=== PATIENT | female | born 1985 | race African-American/Black ===

== ENCOUNTER 2018-03-30 16:30 | Emergency (ER) | payer BC ==
[~2018-03-30] VITALS: Ht 165.1 cm; Wt 77.0 kg
[2018-03-30] MEDS ORDERED: SODIUM CHLORIDE 0.9% 1,000 ML IV ONE (19:09)
[2018-03-30] MEDS ORDERED: FAMOTIDINE 20MG/2ML VIAL IV ONE (19:15)
[2018-03-30] MEDS ORDERED: MAGNESIUM/ALUMINUM HYDROXIDE/SIMETHICONE 30ML UDC PO ONE (19:15)
[2018-03-30] MEDS ORDERED: ONDANSETRON HCL 4MG/2ML INJ IV ONE (19:15)
[2018-03-30] MEDS ORDERED: DICYCLOMINE 10 MG/5 ML ORAL SYR PO ONE (19:15)
[2018-03-30 19:48] LABS: HEMATOCRIT. 41.3 % (36.0-48.0); HEMOGLOBIN. 13.4 g/dL (12.0-16.0); MEAN CORPUSCULAR HEMOGLOBIN 26.6 pg (28.0-32.0); MEAN CORPUSCULAR VOLUME 81.7 fL (81.0-99.0); MEAN PLATELET VOLUME 9.3 fl (7.4-10.4); PLATELET 278 x1000/uL (130-400); RED BLOOD CELL COUNT 5.05 mill/uL (4.2-5.4); RED CELL DISTRIBUTION WIDTH 13.5 % (11.6-14.6)
[2018-03-30 19:54] LABS: CHLORIDE 107 mEq/L (98-107)
[2018-03-30 20:20] LABS: B-HCG QUANTITATIVE 120852 mIU/mL (<3)
[2018-03-30 20:27] LABS: PLATELET ESTIMATE NORMAL
[2018-03-30 22:37] LABS: CLARITY URINE CLOUDY (CLEAR); COLOR URINE DARK YELLOW (YELLOW); KETONES URINE 3+ (NEGATIVE); LEUKOCYTE ESTERASE URINE NEGATIVE (NEGATIVE); NITRITE URINE NEGATIVE (NEGATIVE); OCCULT BLOOD URINE 2+ (NEGATIVE); PROTEIN URINE 1+ (NEGATIVE); SPECIFIC GRAVITY URINE 1.039 (1.005-1.030); UROBILINOGEN URINE 0.2 E.U./dL (0.2-1.0)
[2018-03-30 22:45] LABS: *AMPHETAMINES SCREEN URINE NEGATIVE (NEGATIVE)
[2018-03-30 22:46] LABS: *BARBITURATES SCREEN URINE NEGATIVE (NEGATIVE); *BENZODIAZEPINES SCREEN URINE NEGATIVE (NEGATIVE); *COCAINE SCREEN URINE NEGATIVE (NEGATIVE); METHADONE URINE SCREEN NEGATIVE (NEGATIVE); OPIATES URINE SCREEN NEGATIVE (NEGATIVE); PHENCYCLIDINE URINE SCREEN NEGATIVE (NEGATIVE)
[2018-03-30 23:03] LABS: CANNABINOID URINE SCREEN PRESUMTIVE POSITIVE (NEGATIVE)
[2018-03-30] MEDS ORDERED: PANTOPRAZOLE SODIUM 40 MG/VIAL IV ONE (23:30)
[2018-03-30 23:40] VITALS: BP 121/69
== END 2018-03-31 00:42 | disposition home or self-care (01) ==
LOC: ER 16:39
DX: O26.891 Other specified pregnancy related conditions, first trimester (principal); O21.0 Mild hyperemesis gravidarum; R10.9 Unspecified abdominal pain; Z3A.01 Less than 8 weeks gestation of pregnancy
CPT/HCPCS: 36415; 76801; 76817; 80053; 80305; 81003; 81025; 84702; 85025; 96361; 96374; 96375; 99284; C9113; J2405; J3490; J7030

== ENCOUNTER 2024-11-14 10:29 | Inpatient (IN) | payer BC ==
[~2024-11-14] VITALS: Ht 170.2 cm; Wt 71.7 kg
[2024-11-14 10:32] VITALS: O2SAT 96
[2024-11-14] MEDS: HALOPERIDOL LACTATE 5MG/ML VIAL IM ONE (11:03)
[2024-11-14 11:40] LABS: HEMATOCRIT. 39.9 % (36.0-48.0); HEMOGLOBIN. 13.0 g/dL (12.0-16.0); MEAN PLATELET VOLUME 8.7 fl (7.4-10.4); PLATELET 319 x1000/uL (130-400); RED BLOOD CELL COUNT 4.85 mill/uL (4.2-5.4); RED CELL DISTRIBUTION WIDTH 13.5 % (11.6-14.6)
[2024-11-14 11:52] LABS: HCG SCREEN NEGATIVE
[2024-11-14 11:55] LABS: CREATININE 0.9 mg/dL (0.6-1.0); UREA NITROGEN BLOOD 9 mg/dL (9-23)
[2024-11-14 11:57] LABS: ASPARTATE AMINOTRANSFERASE 19 IU/L (<34); BILIRUBIN DIRECT 0.2 mg/dL (<=3.0); BILIRUBIN TOTAL 0.7 mg/dL (0.1-1.0); PROTEIN TOTAL 7.5 g/dL (6.0-8.3)
[2024-11-14] MEDS: MORPHINE SULFATE 4 MG/ML INJ (FOR IV/IM USE) IV ONE (12:03)
[2024-11-14] MEDS: ONDANSETRON HCL 4MG/2ML INJ IV ONE (12:45)
[2024-11-14] MEDS: POTASSIUM CHLORIDE 20MEQ/PACKET PO ONE (12:46)
[2024-11-14 13:16] LABS: BAND% 4.0 % (1.0-6.0); LYMPHOCYTES % MANUAL 6.0 % (20.0-60.0); NEUTROPHILS % MANUAL 90.0 % (45.0-75.0)
[2024-11-14 13:17] LABS: PLATELET ESTIMATE NORMAL
[2024-11-14] MEDS ORDERED: GUAIFENESIN 200MG/10ML SUGAR FREE UDC PO PRN (14:30)
[2024-11-14] MEDS ORDERED: DOCUSATE SODIUM 100MG CAPSULE PO PRN (14:30)
[2024-11-14] MEDS ORDERED: CLONIDINE 0.1MG TABLET PO PRN (14:30)
[2024-11-14] MEDS: LACTATED RINGERS 1,000 ML IV SCH (15:37)
[2024-11-14] MEDS: ACETAMINOPHEN 325MG TABLET PO PRN ×2 (15:50→18:17)
[2024-11-14 16:22] LABS: *AMPHETAMINES SCREEN URINE NEGATIVE (NEGATIVE); *BARBITURATES SCREEN URINE NEGATIVE (NEGATIVE); *BENZODIAZEPINES SCREEN URINE NEGATIVE (NEGATIVE); *COCAINE SCREEN URINE NEGATIVE (NEGATIVE); CANNABINOID URINE SCREEN PRESUMPTIVE POSITIVE (NEGATIVE); ECSTASY MDMA SCREEN URINE NEGATIVE (NEGATIVE); METHADONE URINE SCREEN NEGATIVE (NEGATIVE); OPIATES URINE SCREEN NEGATIVE (NEGATIVE); PHENCYCLIDINE URINE SCREEN NEGATIVE (NEGATIVE)
[2024-11-14] MEDS: ONDANSETRON HCL 4MG/2ML INJ IV PRN (17:34)
[2024-11-14] MEDS: KCL 20MEQ/100ML PREMIX 100 ML IV NR (17:35)
[2024-11-14 17:58] VITALS: BP 121/85; PULSE 59; RESP 18; TEMP 36.2512
[2024-11-14 18:30] LABS: PHOSPHORUS 0.6 mg/dL (2.5-4.9)
[2024-11-14 18:54] LABS: TROPONIN I HIGH SENSITIVITY < 4 ng/L (3.0-34)
[2024-11-14 18:55] LABS: HEPATITIS A AB IGM NEGATIVE (Negative)
[2024-11-14 18:56] LABS: HEPATITIS B CORE AB IGM NEGATIVE (Negative)
[2024-11-14 18:57] LABS: HEPATITIS C AB NON REACTIVE (Neg) (Negative)
[2024-11-14 20:00] VITALS: BP 156/46; PULSE 57; RESP 18; TEMP 36.2; O2SAT 100
[2024-11-14] MEDS: MAGNESIUM 2 G PREMIX 50 ML IV SCH (20:54)
[2024-11-14 21:10] LABS: TROPONIN I HIGH SENSITIVITY 5 ng/L (3.0-34)
[2024-11-14] MEDS: POTASSIUM-SODIUM PHOSPHATE POWDER PACKET PO SCH (21:40)
[2024-11-14] MEDS: PRAZOSIN HCL 1MG CAPSULE PO SCH (21:43)
[2024-11-14] MEDS: POTASSIUM PHOSPHATE 30 MMOL in SODIUM CHLORIDE 0.9% 490 ML IV SCH (23:30)
[2024-11-15 08:00] VITALS: BP 140/79; PULSE 61; TEMP 36.8
[2024-11-15 08:38] LABS: HEMATOCRIT. 37.7 % (36.0-48.0); HEMOGLOBIN. 12.3 g/dL (12.0-16.0); MEAN PLATELET VOLUME 9.4 fl (7.4-10.4); PLATELET 307 x1000/uL (130-400); RED BLOOD CELL COUNT 4.54 mill/uL (4.2-5.4); RED CELL DISTRIBUTION WIDTH 12.6 % (11.6-14.6)
[2024-11-15 09:01] LABS: CREATININE 0.7 mg/dL (0.6-1.0)
[2024-11-15 09:02] LABS: LDL CHOLESTEROL 57 mg/dL (5-100); TRIGLYCERIDE 40 mg/dL (0-150); TROPONIN I HIGH SENSITIVITY 11 ng/L (3.0-34); UREA NITROGEN BLOOD 5 mg/dL (9-23)
[2024-11-15 09:04] LABS: PHOSPHORUS 3.6 mg/dL (2.5-4.9)
[2024-11-15 09:06] LABS: T4 FREE 1.20 ng/dL (0.89-1.76)
[2024-11-15] MEDS: PANTOPRAZOLE SODIUM 40 MG/VIAL IV SCH (09:08)
[2024-11-15] MEDS: SERTRALINE HCL 50MG TABLET PO SCH (09:09)
[2024-11-15 12:00] VITALS: BP 152/72; PULSE 65; TEMP 36.9
[2024-11-15 12:39] LABS: CLARITY URINE CLEAR (CLEAR); COLOR URINE YELLOW (YELLOW); GLUCOSE URINE TRACE (NEGATIVE); KETONES URINE 2+ (NEGATIVE); LEUKOCYTE ESTERASE URINE NEGATIVE (NEGATIVE); NITRITE URINE NEGATIVE (NEGATIVE); OCCULT BLOOD URINE NEGATIVE (NEGATIVE); PH URINE 8.5 (4.5-8.0); PROTEIN URINE TRACE (NEGATIVE); SPECIFIC GRAVITY URINE 1.017 (1.005-1.030); UROBILINOGEN URINE 0.2 E.U./dL (0.2-1.0)
[2024-11-15 13:00] LABS: SQUAMOUS EPITHELIAL CELL URINE 1+ /lpf (RARE/1+)
[2024-11-15 13:01] LABS: BACTERIA URINE 1+; WBC URINE 0-2 /hpf (0-2)
[2024-11-15 14:44] LABS: BAND% 4.0 % (1.0-6.0); LYMPHOCYTES % MANUAL 6.0 % (20.0-60.0); MONOCYTES % MANUAL 3.0 % (2.0-8.0); NEUTROPHILS % MANUAL 87.0 % (45.0-75.0); PLATELET ESTIMATE NORMAL
[2024-11-15 14:53] LABS: ASPARTATE AMINOTRANSFERASE 27 IU/L (<34); BILIRUBIN DIRECT 0.2 mg/dL (<=3.0); BILIRUBIN TOTAL 0.7 mg/dL (0.1-1.0)
[2024-11-15 14:54] LABS: PROTEIN TOTAL 7.2 g/dL (6.0-8.3)
[2024-11-15 16:00] VITALS: BP 136/78; PULSE 69; TEMP 37.2
[2024-11-15] MEDS: METOCLOPRAMIDE HCL 10MG/2ML VIAL IV SCH (17:56)
[2024-11-15 20:00] VITALS: BP 147/71; PULSE 55; RESP 17; TEMP 36.5; O2SAT 99
[2024-11-15] MEDS: LORAZEPAM 1MG TABLET PO PRN (20:42)
[2024-11-15] MEDS: ENOXAPARIN 40MG/0.4ML SYR SUBCUT SCH (20:43)
[2024-11-15] MEDS: PIPERACILLIN/TAZO 3.375G/50ML 50 ML IV SCH (23:27)
[2024-11-16] VITALS: BP 147/85; PULSE 55; RESP 18; TEMP 36.2; O2SAT 97
[2024-11-16 06:33] LABS: HEMATOCRIT. 38.2 % (36.0-48.0); HEMOGLOBIN. 12.5 g/dL (12.0-16.0); MEAN PLATELET VOLUME 9.2 fl (7.4-10.4); PLATELET 303 x1000/uL (130-400); RED BLOOD CELL COUNT 4.63 mill/uL (4.2-5.4); RED CELL DISTRIBUTION WIDTH 12.9 % (11.6-14.6)
[2024-11-16 06:48] LABS: PHOSPHORUS 2.7 mg/dL (2.5-4.9)
[2024-11-16 08:00] VITALS: BP 139/78; PULSE 61; RESP 16; TEMP 36.8; O2SAT 99
[2024-11-16 10:58] LABS: CREATININE 0.7 mg/dL (0.6-1.0)
[2024-11-16 10:59] LABS: UREA NITROGEN BLOOD 9 mg/dL (9-23)
[2024-11-16 12:00] VITALS: BP 135/74; PULSE 65; RESP 18; TEMP 37; O2SAT 99
[2024-11-16 16:00] VITALS: BP 142/81; PULSE 62; RESP 15; TEMP 36.8; O2SAT 98
[2024-11-16 17:06] LABS: LYMPHOCYTES % MANUAL 9.0 % (20.0-60.0); MONOCYTES % MANUAL 5.0 % (2.0-8.0); NEUTROPHILS % MANUAL 86.0 % (45.0-75.0); PLATELET ESTIMATE NORMAL
[2024-11-16 17:49] LABS: BASOPHILS % 0.2 % (0.0-2.0); EOSINOPHILS % 0.0 % (0.0-5.0); HEMATOCRIT. 41.9 % (36.0-48.0); HEMOGLOBIN. 13.6 g/dL (12.0-16.0); LYMPHOCYTES % 10.3 % (20.0-50.0); MEAN PLATELET VOLUME 9.5 fl (7.4-10.4); MONOCYTES % 6.4 % (2.0-8.0); NEUTROPHILS % 83.1 % (40.0-76.0); PLATELET 343 x1000/uL (130-400); RED BLOOD CELL COUNT 5.00 mill/uL (4.2-5.4); RED CELL DISTRIBUTION WIDTH 12.9 % (11.6-14.6)
[2024-11-16 20:00] VITALS: BP 149/79; PULSE 55; RESP 18; TEMP 36.6; O2SAT 99
[2024-11-17] VITALS: BP 128/70; PULSE 58; RESP 18; TEMP 36.8; O2SAT 98
[2024-11-17 04:00] VITALS: BP 152/79; PULSE 54; RESP 18; TEMP 36.7; O2SAT 100
[2024-11-17 08:00] VITALS: BP 152/98; PULSE 60; RESP 17; TEMP 36.5; O2SAT 98
[2024-11-17 12:00] VITALS: BP 144/86; PULSE 52; RESP 17; TEMP 36.6; O2SAT 98
[2024-11-17 16:00] VITALS: BP 132/83; PULSE 56; RESP 56; TEMP 36.9; O2SAT 98
[2024-11-17] MEDS ORDERED: LEVO-65 MT (17:22)
[2024-11-17] MEDS ORDERED: ONDA4TAB50 MT (17:22)
[2024-11-17] MEDS ORDERED: PROT40 MT (17:22)
[2024-11-17 17:38] VITALS: BP 122/78; PULSE 75; RESP 18; TEMP 98
== END 2024-11-17 19:32 | disposition home or self-care (01) | DRG 313 ==
LOC: ER 10:29 → 6EST 12:25 → EDBEDREQTM 12:30 → EDBEDREQ 12:30 → 6EST 16:52
PROVIDERS: ADMIT Internal Medicine; ATTEND Internal Medicine
DX: R07.89 Other chest pain (principal); R65.10 Systemic inflammatory response syndrome (SIRS) of non-infectious origin without acute organ dysfunction; E87.6 Hypokalemia; R73.9 Hyperglycemia, unspecified; F12.10 Cannabis abuse, uncomplicated; F41.1 Generalized anxiety disorder; R11.2 Nausea with vomiting, unspecified; R00.1 Bradycardia, unspecified
CPT/HCPCS: 36415; 71045; 74176; 80048; 80061; 80076; 80305; 81003; 82962; 83036; 83605; 83735; 84100; 84145; 84439; 84443; 84484; 84703; 85025; 86705; 86709; 87077; 87186; 87340; 93005; 96374; 96375; 99291; A4606; J1630; J1650; J2270; J2405; J2470; J2543; J2765; J3475; J3480; J3490; J7040